=== PATIENT | female | born 1990 | race Caucasian/White ===

== ENCOUNTER 2019-09-05 13:28 | Outpatient (CLI) | payer MEDICAID, SELFPAY ==
[2019-09-05 13:57] VITALS: BP 106/80; PULSE 92
[2019-09-05 14:02] VITALS: RESP 16; TEMP 36.7
[2019-09-05 14:34] VITALS: BMI 33.1
== END 2019-09-05 14:15 | disposition home or self-care (01) ==
LOC: OPOB 13:40 → OBGYN 14:05 → OPOB 09-06 08:47
PROVIDERS: Family Provider Family Medicine; Visit Provider Family Medicine
DX: O26.899 Other specified pregnancy related conditions, unspecified trimester (principal); Z3A.00 Weeks of gestation of pregnancy not specified; R10.9 Unspecified abdominal pain
CPT/HCPCS: 99211

== ENCOUNTER 2019-09-13 12:33 | Outpatient (CLI) | payer MEDICAID, SELFPAY ==
--- NOTE | 2019-09-13 12:42 | US_ITS ---
WS: [id number] ULTRASOUND OB COMPLETE TECHNIQUE: Complete ultrasound. CLINICAL INFORMATION: SUPERVISION NORMAL COMPARISON: None. FINDINGS: Single interuterine gestation is identified with breech presentation. Placenta is anterior. Placenta grade 1. Normal amniotic fluid volume. cardiac activity: 147 BPM. Single vertical pocket measures 3.1 cm AGA: 20w5d KYAW by ultrasound: 01/26/2020 Estimated weight: 368 g BDP: 4.8 cm = 20w4d HC: 18.5 cm = 20w6d AC: 15.5 cm = 20w4d FEMUR LENGTH: 3.4 cm = 20w5d Anatomic survey: Anatomic survey is normal. Normal stomach. Kidneys and bladder are normal. Normal 3 vessel cord. Norm al 3 vessel cord insertion. Normal 4 chamber heart. Normal spine. Intracranial contents are normal. N ormal posterior fossa and cisterna magna. US/US OB >= 14 weeks fetus [id number] IMPRESSION: 1. Single intrauterine with visualized cardiac activity. AGA 20w5d w ith KYAW 01/26/2020. 2. Placenta is anterior. No evidence of abruption or previa. 3. anatomic survey is normal. 4. Normal amniotic fluid volume.
== END 2019-09-13 12:34 | disposition home or self-care (01) ==
LOC: RAD 12:35
PROVIDERS: Family Provider Family Medicine; PCP Family Medicine; Visit Provider Family Medicine
DX: Z34.82 Encounter for supervision of other normal pregnancy, second trimester (principal)
CPT/HCPCS: 76805

== ENCOUNTER 2020-01-11 15:21 | Outpatient (CLI) | payer MEDICAID, SELFPAY ==
--- NOTE | 2020-01-11 15:00 | US_ITS ---
WS: [id number] LIMITED OBSTETRICAL ULTRASOUND HISTORY: MIMI, EFW COMPARISON: 09/13/2019 and 06/17/2019 Presentation: Vertex. Cervix: Cervix is closed measuring 4.3 cm. Placenta: Anterior, no previa or abruption. Placental grade: Late grade 2. measurements: BPD = 9.5 cm = 38w5d HC = 33.7 cm = 38w4d AC = 34.7 cm = 38w5d FL = 7.5 cm = 38w3d MIMI: 13.4 cm EFW: 3537 g; 84 %. AGA by ultrasound: 38w4d KYAW by ultrasound: 01/21/2020 Biometry centrally concordant. Appropriate growth of fetus since the first trimester ultrasound. [facility] t trimester EDC 01/30/2020. US[place] [id number] IMPRESSION: 1. Single intrauterine gestation of 38 weeks 4 days with an EDC of 01/21/2020. C orrelates with the first trimester EDC of 01/30/2020. 2. Vertex position.
== END 2020-01-11 15:22 | disposition home or self-care (01) ==
LOC: RAD 15:24
PROVIDERS: PCP Family Medicine; Visit Provider Family Medicine
DX: Z34.93 Encounter for supervision of normal pregnancy, unspecified, third trimester; Z3A.38 38 weeks gestation of pregnancy
CPT/HCPCS: 76816

== ENCOUNTER 2020-01-23 00:59 | Inpatient (IN) | payer MEDICAID, SELFPAY ==
[2020-01-22 19:09] VITALS: BP 117/74; PULSE 92
[2020-01-22 19:31] VITALS: TEMP 36.7
[2020-01-22 19:34] VITALS: BMI 36.9
[2020-01-22 19:39] LABS: Basophils % 0.4 %; Eosinophils # 0.2 10^3/uL (0.0-0.8); Eosinophils % 2.2 %; Hematocrit 36.1 % (37.0-47.0); Hemoglobin 12.1 g/dL (11.5-15.3); Lymphocytes # 2.2 10^3/uL (0.8-4.8); Lymphocytes % 20.5 %; Mean Corpuscular HGB Conc 33.5 g/dL (30.0-36.0); Mean Corpuscular Hemoglobin 29.2 pg (28.0-34.0); Mean Platelet Volume 10.9 fL (7.4-10.4); Monocytes # 0.7 10^3/uL (0.2-0.9); Monocytes % 6.6 %; Neutrophils # 7.3 10^3/uL (1.8-7.7); Neutrophils % 69.2 %; Nucleated Red Blood Cells % 0 %; Platelet Count 279 10^3/cmm (130-400); Red Blood Count 4.15 10^6/uL (4.1-5.3); White Blood Count 10.5 10^3/uL (4.0-10.0)
[2020-01-22] MEDS: miSOPROStol 100 mcg tablet 25 MCG VAGINAL (19:48)
--- NOTE | 2020-01-22 21:46 | P.HP_ITS ---
Providers/Chief Complaint Admitting Physician: Ronny Hurd MD Primary Care Provider: Rene Schwartz DO Chief Complaint: Induction of Labor History of Present Illness Verito Villafuerte is a 30 year old G8, P5 at 39.3 weeks gestation by LMP consistent with 7-week ultrasound. Her is complicated by tobacco use, history of LGA . The patient is GBS negative. The patient is feeling well at this time. She denies any chest pains, shortness of breath, cough, fever, nausea, vomiting, diarrhea, constipation, dysuria. The patient denies any leakage of fluid, vaginal bleeding. She has had some intermittent contractions. Medications/Allergies Allergies Allergy/AdvReac Type Severity Reaction Status Date / Time No Known Allergies Allergy Verified 01/22/20 21:01 PFSH Acute PFSH: Surgical History (Updated 01/22/20 @ 21:48 by Ronny Hurd MD) History of cholecystectomy Social History (Updated 01/22/20 @ 21:48 by Ronny Hurd MD) Smoking and tobacco status: current every day smoker smokeless tobacco Female Reproductive History: : 8 Vitals/I&O/Wt Last Vital Signs Temp 98.0 F 01/22/20 19:31 Pulse 92 01/22/20 19:09 BP 117/74 01/22/20 19:09 Weight last 48 hrs Weight 243 lb Physical Exam Narrative: EXAM NARRATIVE: General: Alert and oriented x3 Eyes: Pupils equal round and reactive to light and accommodation Mouth: Mucous membranes moist, pharynx non-erythematous Cardiac: Regular rate and rhythm without murmurs Lungs: Clear to auscultation bilaterally without wheezes, crackles or rhonchi Abdomen: Soft, non-tender, fundus consistent with gestational age Extremities: Trace edema in the bilateral lower extremities Data : 01/22/20 19:25 A&P Assessment and plan (1) Intrauterine : Status: Acute Additional A&P Information The patient is doing well at this time. She has a history of large infants and has requested for an elective induction secondary to this. The patient is GBS negative. She was 1 cm upon admission and will be given Cytotec up to 3 doses. Once her Dee score is 6, will plan for IV Pitocin. heart tones are currently in the mid 130s with moderate variability and good accelerations. There is a category 1 tracing. Contractions are every 10 to 15 minutes currently. All questions were answered. Routine induction was discussed with the patient. Plan for routine care at this time. Attestations Medical Necessity Statement*: The patient will be here for greater than 2 midnights due to routine intrapartum and management of labor and delivery. Coding Level of Care Code Acute Political Theory Professor for Jordyn Davis Diagnoses Intrauterine Z34.90
[2020-01-22 23:36] VITALS: BP 102/57; PULSE 85
[2020-01-23] VITALS (21 sets, daily range): BP systolic 0–146; BP diastolic 0–80; PULSE 63–90; RESP 16–18; TEMP 36.6–37.1; O2SAT 97–99
[2020-01-23] MEDS: oxytocin 30 UNIT/500 ML BAG IV (01:23)
[2020-01-23] MEDS: lactated ringers 1,000 ML 125 ML (01:23)
[2020-01-23] MEDS: butorphanol 2 mg/mL SDV 1 mL 1 MG IVP ×2 (03:09→05:21)
[2020-01-23] MEDS: docusate sodium 100 mg Capsule PO (09:24)
[2020-01-23] MEDS: prenatal vitamin Capsule 1 CAP PO (09:24)
[2020-01-23] MEDS: lanolin oint 7 gm 1 APPLIC TOPICAL (09:25)
[2020-01-23] MEDS: benzocaine-menthol 78 gm Canister 1 SPRAY TOPICAL (09:25)
--- NOTE | 2020-01-23 09:53 | PM.DELIVERY ---
Delivery Note: Date of delivery: January 23, 2020 Pre-delivery diagnoses: 1. Intrauterine at 39.4 weeks gestation 2. Tobacco use 3. History of LGA infant Post-delivery diagnoses: 1. Intrauterine status post spontaneous vaginal delivery at 39.4 weeks gestation 2. Tobacco abuse 3. Delivery of healthy male weighing 9 pounds 0 ounces with Apgars of 8 and 9 Procedure: Spontaneous vaginal delivery Op report anesthesia: Other (Stadol x1) Delivering Physician: Ronny Hurd MD Estimated blood loss (mL): 100 Pre-Delivery Course: Verito Villafuerte is a 30 year old G8 now P6 status post spontaneous vaginal delivery at 39.4 weeks gestation by LMP consistent with 7-week ultrasound. Her was complicated by tobacco use, history of LGA infant. The patient is GBS negative. The patient presented to labor and delivery triage on the evening of 01/22/2020 for a scheduled elective induction secondary to concern for prior LGA and measuring large for gestational age. The patient was 1 cm upon admission. She was given 2 doses of Cytotec and changed well with this. Her Dee score was greater than 6 and was started on IV Pitocin overnight. The patient was approximately 6 centimeters dilated and AROM was performed at 7:09 AM on 01/23/2020. The patient was complete at 7:29 AM on 01/23/2020. Delivery: The patient began pushing at 7:30 AM on 01/23/2020. The infant descended rapidly and delivered at 7:32 AM on 01/23/2020. There was a nuchal cord that was delivered prior to delivery of the . The right shoulder was the anterior shoulder and it delivered with steady downward pressure. The rest of the infant delivered without complication. The 's mouth and nose were bulb suctioned by myself and the was crying immediately upon delivery. The infant was placed on the mother's chest where the nurses were waiting to care for him. The cord was clamped by myself and cut by the infant's father. Cord blood was obtained. The cord was then drained of blood and traction was placed on the umbilical cord. The placenta delivered without complication at 7:36 AM on 01/23/2020. The placenta was noted to be intact with a central umbilical cord insertion site. The uterus was massaged and noted to be firm. There was very little bleeding noted. The cervix was inspected and no lacerations were noted. The vaginal wall was inspected and no lacerations were noted. Currently both the and mother are doing well. A&P Assessment and plan (1) Intrauterine : Status: Acute Coding Level of Care Code Acute Soap Slabber for Chg Fwd Diagnoses Intrauterine Z34.90
--- NOTE | 2020-01-23 10:37 | PC.NURSE ---
ambulated to room 204. oriented to room, call light, proud parent pack, and intake/output sheet. questions answered.
[2020-01-23] MEDS: acetaminophen 325 mg Tablet 650 MG PO (13:33)
[2020-01-23 21:52] LABS: Hematocrit 40.2 % (37.0-47.0); Hemoglobin 12.9 g/dL (11.5-15.3); Mean Corpuscular HGB Conc 32.1 g/dL (30.0-36.0); Mean Corpuscular Hemoglobin 28.9 pg (28.0-34.0); Mean Corpuscular Volume 89.9 fL (81-99); Mean Platelet Volume 11.4 fL (7.4-10.4); Platelet Count 277 10^3/cmm (130-400); Red Blood Count 4.47 10^6/uL (4.1-5.3); Red Cell Distribution Width 15.5 % (12.1-15.1); White Blood Count 14.6 10^3/uL (4.0-10.0)
[2020-01-24 04:58] VITALS: BP 112/75; PULSE 73; RESP 18; TEMP 36.8
--- NOTE | 2020-01-24 08:21 | PM.DCS ---
Discharge Providers Date of Admission: 01/23/20 00:59 Date of Discharge: January 24, 2020 Attending Provider at Admission: Ronny Hurd MD Attending Provider at Discharge: Ronny Hurd MD Primary Care Provider: Rene Schwartz DO Diagnoses at Discharge Discharge Diagnosis (1) Intrauterine : Status: Acute Reason for Visit Reason for Visit: Induction of Labor Hospital Course Hospital Course: Verito Villafuerte is a 30 year old G8 now P6 status post spontaneous vaginal delivery at 39.4 weeks gestation by LMP consistent with 7-week ultrasound. Her was complicated by tobacco use, history of LGA infant. The patient is GBS negative. The patient presented to labor and delivery triage on the evening of 01/22/2020 for a scheduled elective induction secondary to concern for prior LGA infant and measuring large for gestational age. The patient was 1 cm upon admission. She was given 2 doses of Cytotec and changed well with this. Her Dee score was greater than 6 and was started on IV Pitocin overnight. The patient was approximately 6 centimeters dilated and AROM was performed at 7:09 AM on 01/23/2020. The patient was complete at 7:29 AM on 01/23/2020. Delivery: The patient began pushing at 7:30 AM on 01/23/2020. The descended rapidly and delivered at 7:32 AM on 01/23/2020. There was a nuchal cord that was delivered prior to delivery of the . The right shoulder was the anterior shoulder and it delivered with steady downward pressure. The rest of the infant delivered without complication. The infant's mouth and nose were bulb suctioned by myself and the was crying immediately upon delivery. The infant was placed on the mother's chest where the nurses were waiting to care for him. The cord was clamped by myself and cut by the infant's father. Cord blood was obtained. The cord was then drained of blood and traction was placed on the umbilical cord. The placenta delivered without complication at 7:36 AM on 01/23/2020. The placenta was noted to be intact with a central umbilical cord insertion site. The uterus was massaged and noted to be firm. There was very little bleeding noted. The cervix was inspected and no lacerations were noted. The vaginal wall was inspected and no lacerations were noted. course: The patient has done very well and her bleeding has decreased well. Her pain is been well controlled. She is ambulating, voiding, passing gas and tolerating food by mouth. She is breast-feeding well and the infant has a good latch. Overall the patient is improving well and in agreement with discharge home today. All questions were answered. Routine care instructions were given. Physical Exam Narrative: EXAM NARRATIVE: General: Alert and oriented x3 Eyes: Pupils equal round and reactive to light and accommodation Mouth: Mucous membranes moist, pharynx non-erythematous Cardiac: Regular rate and rhythm without murmurs Lungs: Clear to auscultation bilaterally without wheezes, crackles or rhonchi Abdomen: Soft, mild tenderness over the uterus. Uterus is firm and midline to centimeters below the umbilicus. Extremities: +1 pitting edema in the bilateral lower extremities Discharge Data Data Completed and Pending: Labs from last 24 hours 01/23/20 21:10 WBC 14.6 H RBC 4.47 Hgb 12.9 Hct 40.2 MCV 89.9 MCH 28.9 MCHC 32.1 RDW 15.5 H Plt Count 277 MPV 11.4 H Vitals: Last Vital Signs Temp 98.2 F 01/24/20 04:58 Pulse 73 01/24/20 04:58 Resp 18 01/24/20 04:58 BP 112/75 01/24/20 04:58 Pulse Ox 99 01/23/20 22:00 Discharge Plan Discharge Patient Disposition: Home, Self-Care Condition: Good Prescriptions: New -U 106.5-1 mg Capsule 1 cap PO DAILY Qty: 30 RF: 1 ibuprofen 800 mg Tablet 800 mg PO TID Qty: 60 RF: 0 Discharge Orders: Discharge Order (Routine); Ordered 01/24/20 Ordered By: Ronny Hurd Referrals: Ronny Hurd MD [Physician] - 6 Weeks Discharge Diet: Regular Discharge Activity: Increase activity as tolerated Activity Restrictions/Additional Instructions: Nothing per vagina for 6 weeks. No baths for 6 weeks, but showers are okay. Discharge Attestations Time Spent in Discharge Care*: less than 30 min Quality Metrics Clinical Quality Measures During this hospital stay, did patient experience: None Coding Level of Care Code Acute Retrofit Installer for Chg Fwd Diagnoses Intrauterine Z34.90
[2020-01-24] MEDS: docusate sodium 100 mg Capsule PO (09:27)
[2020-01-24] MEDS: prenatal vitamin Capsule 1 CAP PO (09:27)
[2020-01-24 10:00] VITALS: BP 111/69; PULSE 80; RESP 18; TEMP 36.6; O2SAT 96
== END 2020-01-24 10:20 | disposition home or self-care (01) | DRG 807 ==
PROVIDERS: Admitting Provider Family Medicine; PCP Family Medicine; Visit Provider Family Medicine
DX: O99.334 Smoking (tobacco) complicating childbirth (principal); Z37.0 Single live birth; F17.210 Nicotine dependence, cigarettes, uncomplicated; Z3A.39 39 weeks gestation of pregnancy; O36.63X0 Maternal care for excessive fetal growth, third trimester, not applicable or unspecified; O69.81X0 Labor and delivery complicated by cord around neck, without compression, not applicable or unspecified
CPT/HCPCS: 12345; 36415; 59025; 59409; 85025; 85027; 96374; 96375; J0595

== ENCOUNTER 2023-05-13 14:43 | Outpatient (CLI) | payer BC, MEDICAID, SELFPAY ==
--- NOTE | 2023-05-13 15:03 | XR_ITS ---
WS: [id number] Exam: XR foot LT min 3V* [id number] Date/Time of Exam: 05/13/2023 3:03 PM Reason For Exam: Left heel pain Findings: The foot was examined in multiple views and reveals no fractures or displacements of bone. No bony a nomalies are noted. The bony elements are in adequate alignment. The joint spaces are smooth and eq uidistant. IMPRESSION: Negative LEFT foot.
== END 2023-05-13 14:44 | disposition home or self-care (01) ==
PROVIDERS: PCP Nurse Practitioner Family; Visit Provider Nurse Practitioner Family
DX: M79.672 Pain in left foot (principal)
CPT/HCPCS: 73630

== ENCOUNTER → 2025-07-05 15:40 | Outpatient (BNVA) | payer OTHER, SELFPAY | PROVIDERS: PCP Nurse Practitioner Family; Visit Provider Clinical Nurse Specialist Adult Health | DX: R30.0 Dysuria (principal); R10.31 Right lower quadrant pain | CPT/HCPCS: 81000; 87086 ==

== ENCOUNTER 2025-07-07 11:20 | Outpatient (CLI) | payer OTHER, SELFPAY ==
--- NOTE | 2025-07-07 11:30 | US_ITS ---
WS: [id number] Right lower quadrant ultrasound to rule out appendicitis, 07/07/2025 Clinical Data: R10.31 - Right lower quadrant pain Comparison: None. Findings: Right lower quadrant reveals no abnormal masses or bowel. There is no evidence of appendicitis. There may be a minimal amount of fluid in the right lower quadrant. US/US appendix [id number] Impression: 1. Negative for appendicitis. 2. Minimal fluid in right lower quadrant.
== END 2025-07-07 11:21 | disposition home or self-care (01) ==
PROVIDERS: PCP Clinical Nurse Specialist Adult Health; Visit Provider Clinical Nurse Specialist Adult Health
DX: R10.31 Right lower quadrant pain (principal)
CPT/HCPCS: 76705